=== PATIENT | male | born 1980 | race Two or more races ===

== ENCOUNTER 2022-08-04 15:19 | Emergency (ER) | payer OTHER ==
[~2022-08-04] VITALS: Ht 180.3 cm; Wt 70.8 kg
--- NOTE | 2022-08-04 15:30 | NUR ---
Patient came in to the er c/o L wrist pain, +deformity s/p falling off a ladder approx 6 ft high, 100mcg fentanyl and zofran 4mg ivp given. On room air, breathing normally and unlabored. Kept comfortable, will continue, to monitor accordingly.
[2022-08-04] MEDS ORDERED: HYDROMORPHONE 1 MG/1 ML DISP.SYRIN ONE (15:57)
[2022-08-04] MEDS ORDERED: HYDROMORPHONE 1 MG/1 ML DISP.SYRIN IV ONE (16:00)
[2022-08-04] MEDS ORDERED: LIDOCAINE 1% INJ 50 ML MDV IJ ONE (16:54)
[2022-08-04] MEDS ORDERED: PROPOFOL 20 ML IV ONE (17:14)
[2022-08-04] MEDS ORDERED: PROPOFOL 200 MG/20 ML VIAL IV ONE (17:30)
[2022-08-04] MEDS ORDERED: HYDROCODONE/APAP 10/325MG TABLET PO ONE (18:00)
[2022-08-04] MEDS ORDERED: HYDROCODONE/APAP 10/325MG TABLET ONE (18:03)
[2022-08-04] MEDS ORDERED: HYDR-3972 PO (18:41)
[2022-08-04] MEDS ORDERED: IBUP-1955 PO (18:41)
[2022-08-04 18:51] VITALS: BP 135/99
--- NOTE | 2022-08-04 18:53 | NUR ---
Patient discharged to home in stable condition. Written and verbal after care instructions given. Patient verbalizes understanding of instruction.IV removed. Catheter intact and site benign. Pressure and 4x4 applied to site. No bleeding noted.
== END 2022-08-04 18:53 | disposition home or self-care (01) ==
LOC: ER 15:25
DX: S52.511A Displaced fracture of right radial styloid process, initial encounter for closed fracture (principal); W11.XXXA Fall on and from ladder, initial encounter; Y93.89 Activity, other specified; Y92.89 Other specified places as the place of occurrence of the external cause; Y99.8 Other external cause status
CPT/HCPCS: 25605; 99285; 99152; 96374; 73090 ×3; J2704; J3490; J1170; G0500